=== PATIENT | male | born 1945 ===

== ENCOUNTER 2022-06-01 13:26 | Emergency (ER) | payer MEDICARE ==
--- NOTE | 2022-06-01 15:38 | Emergency Department Report ---
ED General Adult HPI - General Chief complaint: Syncope Stated complaint: NEAR SYNCOPAL Time Seen by Provider: 06/01/22 15:00 Source: patient, EMS Mode of arrival: Stretcher Limitations: No Limitations - History of Present Illness Initial comments: Patient is a 76-year-old male past medical history of anxiety who presents with a syncopal episode that occurred while patient was in [employer]. He states that it felt like an anxiety attack and he has had these happen before which have resulted in syncope. Patient is having no chest pain or shortness of breath no headache. - Related Data Allergies Allergy/AdvReac Type Severity Reaction Status Date / Time No Known Allergies Allergy Verified 06/01/22 13:33 ED Review of Systems ROS: Stated complaint: NEAR SYNCOPAL Other details as noted in HPI Constitutional: denies: chills, fever Eyes: denies: eye pain, eye discharge, vision change ENT: denies: ear pain, throat pain Respiratory: denies: cough, shortness of breath, wheezing Cardiovascular: denies: chest pain, palpitations Endocrine: no symptoms reported Gastrointestinal: denies: abdominal pain, nausea, diarrhea Genitourinary: denies: urgency, dysuria Musculoskeletal: denies: back pain, joint swelling, arthralgia Skin: denies: rash, lesions Neurological: denies: headache, weakness, paresthesias Psychiatric: denies: anxiety, depression Hematological/Lymphatic: denies: easy bleeding, easy bruising ED Physical Exam - General Limitations: No Limitations General appearance: alert, in no apparent distress - Head Head exam: Present: atraumatic, normocephalic - Eye Eye exam: Present: normal appearance - ENT ENT exam: Present: mucous membranes moist - Neck Neck exam: Present: normal inspection - Respiratory Respiratory exam: Present: normal lung sounds bilaterally. Absent: respiratory distress - Cardiovascular Cardiovascular Exam: Present: regular rate, normal rhythm. Absent: systolic murmur, diastolic murmur, rubs, gallop - GI/Abdominal GI/Abdominal exam: Present: soft, normal bowel sounds - Rectal Rectal exam: Present: deferred - Extremities Exam Extremities exam: Present: normal inspection - Back Exam Back exam: Present: normal inspection - Neurological Exam Neurological exam: Present: alert, oriented X3 - Psychiatric Psychiatric exam: Present: normal affect, normal mood - Skin Skin exam: Present: warm, dry, intact, normal color. Absent: rash ED Course Vital Signs 08/03/22 08/03/22 08/03/22 13:30 14:20 14:25 Pulse Rate 47 L 52 L Respiratory 16 10 L Rate Blood Pressure Blood Pressure 136/63 [Left] O2 Sat by Pulse 98 100 Oximetry 06/01/22 06/01/22 06/01/22 14:30 14:46 15:00 Pulse Rate 47 L 47 L 53 L Respiratory 13 16 25 H Rate Blood Pressure 152/64 152/64 152/64 Blood Pressure [Left] O2 Sat by Pulse 100 100 98 Oximetry ED Medical Decision Making - Lab Data Result diagrams: 06/01/22 15:45 06/01/22 15:45 Lab Results 06/01/22 06/01/22 Range/Units 15:45 15:45 WBC 6.5 (4.5-11.0) K/mm3 RBC 3.90 (3.65-5.03) M/mm3 Hgb 12.2 (11.8-15.2) gm/dl Hct 38.0 (35.5-45.6) % MCV 97 H (84-94) fl MCH 31 (28-32) pg MCHC 32 (32-34) % RDW 13.3 (13.2-15.2) % Plt Count 134 L (140-440) K/mm3 Lymph % (Auto) 16.2 (13.4-35.0) % [place] % (Auto) 6.0 (0.0-7.3) % Eos % (Auto) 0.5 (0.0-4.3) % Baso % (Auto) 0.6 (0.0-1.8) % Lymph # (Auto) 1.1 L (1.2-5.4) K/mm3 [place] # (Auto) 0.4 (0.0-0.8) K/mm3 Eos # (Auto) 0.0 (0.0-0.4) K/mm3 Baso # (Auto) 0.0 (0.0-0.1) K/mm3 Seg Neutrophils % 76.7 H (40.0-70.0) % Seg Neutrophils # 5.0 (1.8-7.7) K/mm3 Sodium 143 (137-145) mmol/L Potassium 4.6 (3.6-5.0) mmol/L Chloride 106.9 (98-107) mmol/L Carbon Dioxide 28 (22-30) mmol/L Anion Gap 13 mmol/L BUN 13 (9-20) mg/dL Creatinine 1.2 (0.8-1.3) mg/dL Estimated GFR 59 ml/min BUN/Creatinine Ratio 11 % Glucose 88 (75-100) mg/dL Calcium 9.5 (8.4-10.2) mg/dL Troponin T < 0.010 (0.00-0.029) ng/mL - EKG Data -: EKG Interpreted by Me - EKG Data 06/01/22 18:08 EKG time 15: 09 rate 43 sinus bradycardia signs of left ventricular hypertrophy - Radiology Data Radiology results: report reviewed, image reviewed CT scan of the head: No acute intercranial process - Medical Decision Making CDX: Syncope secondary to panic attack DDx: Arrhythmia, non-STEMI I will get CT scan of head blood work troponin EKG and I will discharge the patient Patient is feeling better I will discharge the patient home Critical care attestation.: If time is entered above; I have spent that time in minutes in the direct care of this critically ill patient, excluding procedure time. ED Disposition Clinical Impression: Syncope Qualifiers: Syncope type: unspecified Qualified Code(s): R55 - Syncope and collapse Disposition: 01 HOME / SELF CARE / HOMELESS Is pt being admited?: No Does the pt Need Aspirin: No Condition: Stable Instructions: Syncope (ED)
[2022-06-01 16:08] LABS: Basophils % (Auto) 0.6 % (0.0-1.8); Eosinophils % (Auto) 0.5 % (0.0-4.3); Hemoglobin 12.2 gm/dl (11.8-15.2); Lymphocytes # (Auto) 1.1 K/mm3 (1.2-5.4); Lymphocytes % (Auto) 16.2 % (13.4-35.0); Mean Corpuscular HGB Conc 32 % (32-34); Mean Corpuscular Volume 97 fl (84-94); Monocytes # (Auto) 0.4 K/mm3 (0.0-0.8); Platelet Count 134 K/mm3 (140-440); Red Cell Distribution Width 13.3 % (13.2-15.2)
--- NOTE | 2022-06-01 17:01 | Cat Scan Report ---
CT HEAD WITHOUT CONTRAST INDICATION / CLINICAL INFORMATION: syncope. TECHNIQUE: All CT scans at this location are performed using CT dose reduction for ALARA by means of automated exposure control. COMPARISON: None available. FINDINGS: BRAIN PARENCHYMA: No acute intracranial hemorrhage. Confluent areas of hypoattenuation involving the periventricular and subcortical white matter, most consistent with chronic small vessel ischemic avalos ges. No evidence of recent infarct. VENTRICULAR SYSTEM/EXTRA-AXIAL SPACES: The ventricles are prominent with disproportionate effacement of the sulci at the vertex. No extra-axial fluid collection. ORBITS: Normal as visualized. SKELETAL SYSTEM/SOFT TISSUES: Normal bones and soft tissues. PARANASAL SINUSES/MASTOID AIR CELLS: No significant abnormality. ADDITIONAL FINDINGS: None. IMPRESSION: 1. No evidence of acute intracranial abnormality. 2. The ventricles are prominent with disproportionate effacement of the sulci at the vertex. Findings may be seen with normal pressure hydrocephalus. 3. Chronic small vessel ischemic changes. Signer Name: Bobby Hanna MD Signed: 06/01/2022 4:57 PM Workstation Name: [id number]
[2022-06-01 17:17] LABS: BUN/Creatinine Ratio 11; Blood Urea Nitrogen 13 mg/dL (9-20); Calcium 9.5 mg/dL (8.4-10.2); Hemolysis Index 22
[2022-06-01 18:13] VITALS: BP 68/27
--- NOTE | 2022-06-02 18:33 | Electrocardiograph Report ---
[facility] Test Date: 2022-06-01 Test Time: 15:09:11 Pat Name: SAGAR WONG Department: Room: Gender: M Lab Manager: GP : [id number] Requested By: WINIFRED PRATER Order Number: [id number] Reading MD: Alivia Graham Measurements Intervals [place] Rate: 43 P: 31 NE: 171 QRS: 34 QRSD: 89 T: 67 QT: 485 QTc: 410 Interpretive Statements Marked sinus bradycardia with irregular rate Consider left ventricular hypertrophy No previous ECG available for comparison Electronically Signed On 06-02-2022 18:33:33 EDT by Alivia Graham
== END 2022-06-01 18:50 | disposition home or self-care (01) ==
LOC: ED 13:26
DX: R55 Syncope and collapse (principal)
CPT/HCPCS: 36415; 70450; 80048; 84484; 85025; 93005; 99284